=== PATIENT | male | born 1940 | race Caucasian/White ===

== ENCOUNTER 2021-08-24 10:09 | Outpatient (CLI) | payer MEDICARE | END 2021-08-24 10:10 | disposition home or self-care (01) | LOC: CTENTCT 10:09 | PROVIDERS: ATTEND Otolaryngology Plastic Surgery within the Head & Neck | DX: J32.9 Chronic sinusitis, unspecified (principal) | CPT/HCPCS: 70486 ==

== ENCOUNTER 2022-08-17 12:29 | Outpatient (CLI) | payer MEDICARE | END 2022-08-17 12:30 | disposition home or self-care (01) | LOC: RAD 12:29 | PROVIDERS: ATTEND Nurse Practitioner Family | DX: R05.1 Acute cough (principal) | CPT/HCPCS: 71046 ==

== ENCOUNTER 2022-08-17 14:24 | Inpatient (IN) | payer MEDICARE ==
[~2022-08-17 14:24] MED LIST: Iopamidol-370 76% 500 ML 1 ML ONE
[2022-08-17 15:00] LABS: #Eosinphils 0.2 thou/uL (0.0-0.7); #Lymphocytes 1.1 thou/uL (1.20-3.40); #Monocytes 0.7 thou/uL (0.11-0.59); %Basophils 0.8 % (0.0-1.0); %Lymphocytes 18.1 % (21.0-51.0); %Monocytes 11.7 % (0.0-10.0); %Neutrophils 65.5 % (42.0-75.0); Hemoglobin 16.3 g/dL (14.0-18.0); Mean Corpuscular HGB CONC 34.8 g/dL (32.0-36.0); Mean Corpuscular Hemoglobin 33.8 pg (27.0-31.0); Mean Platelet Volume 7.4 fL (7.4-10.4); Platelet Count 173 10x3/uL (130-400); RBC Distribution Width 11.9 % (11.5-14.5); Red Blood Cell (RBC) Count 4.81 mill/uL (4.70-6.10); White Blood Cell (WBC) Count 6.1 10x3/uL (4.8-10.8)
[2022-08-17 15:27] LABS: ALT (SGPT) 38 U/L (8-55); AST (SGOT) 33 U/L (5-34); Albumin 4.1 g/dL (3.4-4.8); Alkaline Phosphatase 112 U/L (40-110); Anion Gap 13 mmol/L (10-20); BUN (Urea Nitrogen) 14 mg/dL (8.4-25.7); Bilirubin, Total 0.7 mg/dL (0.2-1.2); Calc. Creatinine Clearance 0 mL/min (70-130); Calcium 9.6 mg/dL (7.8-10.44); Carbon Dioxide 25 mmol/L (23-31); Chloride 104 mmol/L (98-107); Estimated GFR 83; Globulin 2.9 g/dL (2.4-3.5); Glucose 144 mg/dL (83-110); Potassium 3.9 mmol/L (3.5-5.1); Sodium 138 mmol/L (136-145)
[2022-08-17] MEDS ORDERED: methylPREDNISolone Sod Succ/PF 125 MG/2 ML VIAL ONE (15:46)
[2022-08-17] MEDS ORDERED: Ipratropium/Albuterol 3 ML NEB ONE (15:57)
[2022-08-17 17:52] LABS: SARS-CoV-2 NAA Rapid Test Not Detected (NotDetected)
[2022-08-17] MEDS ORDERED: Ondansetron PF 4 MG/2 ML Vial IVP PRN (17:52)
[2022-08-17] MEDS ORDERED: Acetaminophen 325 MG TAB PO PRN (17:52)
[2022-08-17] MEDS ORDERED: Cepastat Lozenges 1 LOZ PO PRN (17:52)
[2022-08-17] MEDS ORDERED: Ondansetron ODT 4 MG TAB PO PRN (17:52)
[2022-08-17] MEDS ORDERED: cefTRIAXone\\ROCEPHIN 2 GM VIAL ONE (18:10)
[2022-08-17 19:43] LABS: Troponin I 0.014 ng/mL (< 0.028)
[2022-08-17] MEDS ORDERED: Azithromycin 500 MG in Sodium Chloride 0.9% 250 ML 250 ML IVPB SCH (20:00)
[2022-08-17 20:46] LABS: Bacteria/HPF None Seen HPF (None Seen); Bilirubin Negative (Negative); Blood, Urine Negative (Negative); CAUTI Indications for Culture Dysuria,urgency,freq; Clarity Clear (Clear); Glucose, Urine (Dipstick) Normal (Negative); Ketone, Urine Negative (Negative); Leukocyte Negative Leu/uL (Negative); Nitrite Negative (Negative); Protein, Urine (Dipstick) Negative (Neg-Trace); RBC/HPF 0-3 HPF (0-3); Specific Gravity, Urine 1.027 (1.002-1.036); Squamous Epithelial None Seen HPF (0-3); Urobilinogen Normal mg/dL (Less than 2); WBC/HPF 0-3 HPF (0-3)
[2022-08-17 20:48] LABS: Urine Culture Reflex No No
[2022-08-17 22:17] LABS: Troponin I 0.012 ng/mL (< 0.028)
[2022-08-17] MEDS: guaiFENesin/DM ER PO SCH (22:40)
[2022-08-17] MEDS: Sodium Chloride 0.9% 1,000 ML IV SCH (22:40)
[2022-08-17] MEDS: methylPREDNISolone Sod Succ 40 MG VIAL IVP SCH (22:40)
[2022-08-17 23:54] VITALS: BMI 31.6
[2022-08-18] MEDS ORDERED: Ipratropium/Albuterol 3 ML NEB NEB PRN (01:44)
[2022-08-18] MEDS ORDERED: Metoprolol Tartrate 5 MG/5 ML VIAL IVP SCH ×2 (02:00→03:30)
[2022-08-18] MEDS: methylPREDNISolone Sod Succ 40 MG VIAL IVP SCH ×4 (04:21→20:42)
[2022-08-18] MEDS: GUAIFENESIN SF SOLN 200 MG/10 ML UDCUP PO PRN (04:25)
[2022-08-18 05:24] LABS: #Lymphocytes 0.7 thou/uL (1.20-3.40); #Monocytes 0.1 thou/uL (0.11-0.59); #Neutrophils 4.4 thou/uL (1.40-6.50); %Eosinophils 0.1 % (0.0-10.0); %Lymphocytes 12.7 % (21.0-51.0); %Neutrophils 85.2 % (42.0-75.0); Hemoglobin 14.7 g/dL (14.0-18.0); Mean Corpuscular HGB CONC 33.9 g/dL (32.0-36.0); Mean Corpuscular Hemoglobin 33.3 pg (27.0-31.0); Mean Platelet Volume 7.4 fL (7.4-10.4); Platelet Count 175 10x3/uL (130-400); RBC Distribution Width 11.8 % (11.5-14.5); Red Blood Cell (RBC) Count 4.43 mill/uL (4.70-6.10); White Blood Cell (WBC) Count 5.2 10x3/uL (4.8-10.8)
[2022-08-18 05:44] LABS: Anion Gap 11 mmol/L (10-20); BUN (Urea Nitrogen) 12 mg/dL (8.4-25.7); Calc. Creatinine Clearance 113 mL/min (70-130); Calcium 8.7 mg/dL (7.8-10.44); Carbon Dioxide 22 mmol/L (23-31); Chloride 108 mmol/L (98-107); Estimated GFR 91; Glucose 154 mg/dL (83-110); Potassium 4.1 mmol/L (3.5-5.1); Sodium 137 mmol/L (136-145)
[2022-08-18] MEDS: guaiFENesin/DM ER PO SCH ×2 (08:55→20:39)
[2022-08-18] MEDS: Sodium Chloride 0.9% 1,000 ML IV SCH (08:55)
[2022-08-18] MEDS: Diltiazem 125 MG in Sodium Chloride 0.9% 100 ML IVPB SCH (15:09)
[2022-08-18] MEDS: Benzonatate 100 MG CAP PO PRN (20:39)
[2022-08-18] MEDS: Doxycycline 100 MG CAP PO SCH (20:39)
[2022-08-19] MEDS: GUAIFENESIN SF SOLN 200 MG/10 ML UDCUP PO PRN (03:42)
[2022-08-19] MEDS: methylPREDNISolone Sod Succ 40 MG VIAL IVP SCH ×4 (05:24→23:54)
[2022-08-19 05:49] LABS: #Lymphocytes 0.9 thou/uL (1.20-3.40); #Monocytes 0.4 thou/uL (0.11-0.59); #Neutrophils 14.6 thou/uL (1.40-6.50); %Eosinophils 0.1 % (0.0-10.0); %Lymphocytes 5.9 % (21.0-51.0); %Monocytes 2.3 % (0.0-10.0); %Neutrophils 91.7 % (42.0-75.0); Hemoglobin 14.7 g/dL (14.0-18.0); Mean Corpuscular HGB CONC 33.4 g/dL (32.0-36.0); Mean Corpuscular Hemoglobin 32.8 pg (27.0-31.0); Mean Corpuscular Volume 98.1 fl (78.0-98.0); Mean Platelet Volume 7.5 fL (7.4-10.4); Platelet Count 193 10x3/uL (130-400); Red Blood Cell (RBC) Count 4.47 mill/uL (4.70-6.10); White Blood Cell (WBC) Count 15.9 10x3/uL (4.8-10.8)
[2022-08-19 06:14] LABS: Anion Gap 10 mmol/L (10-20); BUN (Urea Nitrogen) 20 mg/dL (8.4-25.7); Calc. Creatinine Clearance 107 mL/min (70-130); Calcium 9.1 mg/dL (7.8-10.44); Carbon Dioxide 23 mmol/L (23-31); Chloride 107 mmol/L (98-107); Estimated GFR 89; Glucose 151 mg/dL (83-110); Potassium 4.2 mmol/L (3.5-5.1); Sodium 136 mmol/L (136-145)
[2022-08-19] MEDS: guaiFENesin/DM ER PO SCH ×2 (09:03→20:57)
[2022-08-19] MEDS: Levothyroxine Sodium 50 MCG TAB PO SCH (09:03)
[2022-08-19] MEDS: Escitalopram Oxalate 10 mg Tablet PO SCH (09:04)
[2022-08-19] MEDS: Doxycycline 100 MG CAP PO SCH ×2 (09:04→20:57)
[2022-08-19] MEDS: Diltiazem 125 MG in Sodium Chloride 0.9% 100 ML IVPB SCH (15:56)
[2022-08-20 05:09] LABS: #Lymphocytes 0.8 thou/uL (1.20-3.40); #Monocytes 0.3 thou/uL (0.11-0.59); #Neutrophils 12.2 thou/uL (1.40-6.50); %Basophils 0.1 % (0.0-1.0); %Lymphocytes 6.2 % (21.0-51.0); %Monocytes 1.9 % (0.0-10.0); %Neutrophils 91.8 % (42.0-75.0); Hemoglobin 14.4 g/dL (14.0-18.0); Mean Corpuscular HGB CONC 33.5 g/dL (32.0-36.0); Mean Corpuscular Hemoglobin 32.6 pg (27.0-31.0); Mean Corpuscular Volume 97.3 fl (78.0-98.0); Mean Platelet Volume 7.6 fL (7.4-10.4); Platelet Count 193 10x3/uL (130-400); RBC Distribution Width 11.9 % (11.5-14.5); Red Blood Cell (RBC) Count 4.43 mill/uL (4.70-6.10); White Blood Cell (WBC) Count 13.3 10x3/uL (4.8-10.8)
[2022-08-20 05:36] LABS: Anion Gap 11 mmol/L (10-20); BUN (Urea Nitrogen) 18 mg/dL (8.4-25.7); Calc. Creatinine Clearance 115 mL/min (70-130); Calcium 8.9 mg/dL (7.8-10.44); Carbon Dioxide 22 mmol/L (23-31); Chloride 106 mmol/L (98-107); Estimated GFR 91; Glucose 145 mg/dL (83-110); Potassium 4.1 mmol/L (3.5-5.1); Sodium 135 mmol/L (136-145)
[2022-08-20] MEDS: methylPREDNISolone Sod Succ 40 MG VIAL IVP SCH ×4 (06:10→23:55)
[2022-08-20] MEDS: guaiFENesin/DM ER PO SCH ×2 (09:44→20:33)
[2022-08-20] MEDS: Escitalopram Oxalate 10 mg Tablet PO SCH (09:44)
[2022-08-20] MEDS: Doxycycline 100 MG CAP PO SCH ×2 (09:44→20:34)
[2022-08-20] MEDS: Levothyroxine Sodium 50 MCG TAB PO SCH (09:47)
[2022-08-20] MEDS ORDERED: PROPOFOL 200 MG/20 ML VIAL ONE (12:22)
[2022-08-20] MEDS ORDERED: Lidocaine 1% PF 5 ML VIAL ONE (12:22)
[2022-08-20] MEDS: Benzonatate 100 MG CAP PO PRN (20:33)
[2022-08-20] MEDS: Diltiazem HCl SR 60 mg Capsule PO SCH (20:35)
[2022-08-20] MEDS: GUAIFENESIN SF SOLN 200 MG/10 ML UDCUP PO PRN (23:55)
[2022-08-21 02:33] LABS: #Lymphocytes 0.8 thou/uL (1.20-3.40); #Monocytes 0.3 thou/uL (0.11-0.59); #Neutrophils 7.8 thou/uL (1.40-6.50); %Basophils 0.1 % (0.0-1.0); %Eosinophils 0.1 % (0.0-10.0); %Monocytes 2.8 % (0.0-10.0); Hemoglobin 13.4 g/dL (14.0-18.0); Mean Corpuscular HGB CONC 34.7 g/dL (32.0-36.0); Mean Corpuscular Hemoglobin 34.1 pg (27.0-31.0); Mean Corpuscular Volume 98.3 fl (78.0-98.0); Mean Platelet Volume 7.5 fL (7.4-10.4); Platelet Count 188 10x3/uL (130-400); RBC Distribution Width 11.9 % (11.5-14.5); Red Blood Cell (RBC) Count 3.93 mill/uL (4.70-6.10); White Blood Cell (WBC) Count 8.9 10x3/uL (4.8-10.8)
[2022-08-21 02:53] LABS: Magnesium 2.1 mg/dL (1.6-2.6)
[2022-08-21 03:05] LABS: Anion Gap 11 mmol/L (10-20); BUN (Urea Nitrogen) 26 mg/dL (8.4-25.7); Calc. Creatinine Clearance 96 mL/min (70-130); Calcium 9.3 mg/dL (7.8-10.44); Carbon Dioxide 26 mmol/L (23-31); Chloride 104 mmol/L (98-107); Estimated GFR 86; Glucose 162 mg/dL (83-110); Potassium 4.2 mmol/L (3.5-5.1); Sodium 137 mmol/L (136-145)
[2022-08-21] MEDS: Levothyroxine Sodium 50 MCG TAB PO SCH (06:09)
[2022-08-21] MEDS: methylPREDNISolone Sod Succ 40 MG VIAL IVP SCH ×3 (06:09→17:37)
[2022-08-21] MEDS: Doxycycline 100 MG CAP PO SCH ×2 (08:50→20:38)
[2022-08-21] MEDS: Escitalopram Oxalate 10 mg Tablet PO SCH (08:50)
[2022-08-21] MEDS: guaiFENesin/DM ER PO SCH ×2 (08:50→20:39)
[2022-08-21] MEDS: Diltiazem HCl SR 60 mg Capsule PO SCH (08:52)
[2022-08-22] MEDS: methylPREDNISolone Sod Succ 40 MG VIAL IVP SCH ×4 (00:07→16:37)
[2022-08-22 05:40] LABS: Anion Gap 9 mmol/L (10-20); BUN (Urea Nitrogen) 22 mg/dL (8.4-25.7); Calc. Creatinine Clearance 106 mL/min (70-130); Calcium 9.1 mg/dL (7.8-10.44); Carbon Dioxide 26 mmol/L (23-31); Chloride 103 mmol/L (98-107); Estimated GFR 89; Glucose 144 mg/dL (83-110); Potassium 4.1 mmol/L (3.5-5.1); Sodium 134 mmol/L (136-145)
[2022-08-22] MEDS ORDERED: Clindamycin/D5W 900 MG in Premix Bag 1 BAG IVPB SCH (05:45)
[2022-08-22] MEDS: Levothyroxine Sodium 50 MCG TAB PO SCH (06:14)
[2022-08-22] MEDS: Doxycycline 100 MG CAP PO SCH ×2 (07:54→21:24)
[2022-08-22] MEDS: guaiFENesin/DM ER PO SCH ×2 (07:55→21:24)
[2022-08-22] MEDS: Escitalopram Oxalate 10 mg Tablet PO SCH (07:55)
[2022-08-22] MEDS ORDERED: Levofloxacin 500 mg/D5W 100 ml Premix Bag ONE (08:00)
[2022-08-22] MEDS ORDERED: Lidocaine 1% (PF) 30 ML VIAL ONE ×2 (08:04→08:51)
[2022-08-22] MEDS ORDERED: Vancomycin HCl 500 MG VIAL ONE (08:04)
[2022-08-22] MEDS ORDERED: Clindamycin/D5W 600 mg/50 ml Premix Bag ONE (08:04)
[2022-08-22] MEDS ORDERED: Gentamicin 80 MG/2 ML VIAL ONE (08:31)
[2022-08-22] MEDS ORDERED: Ipratropium/Albuterol 3 ML NEB NEB SCH (15:15)
[2022-08-23] MEDS: Levothyroxine Sodium 50 MCG TAB PO SCH (06:21)
[2022-08-23] MEDS: Doxycycline 100 MG CAP PO SCH (09:06)
[2022-08-23] MEDS: guaiFENesin/DM ER PO SCH (09:07)
[2022-08-23] MEDS: Escitalopram Oxalate 10 mg Tablet PO SCH (09:07)
[2022-08-23 13:00] VITALS: BP 166/73; TEMP 97.4
== END 2022-08-23 15:11 | disposition home or self-care (01) | DRG 243 ==
LOC: ERS 14:24 → 2SW 17:40 → OBSVTOIN 08-20 08:59
PROVIDERS: ADMIT Family Medicine; ATTEND Internal Medicine
PROC: 0JH606Z Insertion of Pacemaker, Dual Chamber into Chest Subcutaneous Tissue and Fascia, Open Approach (ICD-10-PCS; principal; 2022-08-22)
PROC: 02H63JZ Insertion of Pacemaker Lead into Right Atrium, Percutaneous Approach (ICD-10-PCS; 2022-08-22)
PROC: 02HK3JZ Insertion of Pacemaker Lead into Right Ventricle, Percutaneous Approach (ICD-10-PCS; 2022-08-22)
PROC: 5A2204Z Restoration of Cardiac Rhythm, Single (ICD-10-PCS; 2022-08-22)
PROC: B246ZZ4 Ultrasonography of Right and Left Heart, Transesophageal (ICD-10-PCS; 2022-08-22)
DX: I48.92 Unspecified atrial flutter (principal); E87.1 Hypo-osmolality and hyponatremia; I49.5 Sick sinus syndrome; E03.9 Hypothyroidism, unspecified; Z20.822 Contact with and (suspected) exposure to COVID-19; I10 Essential (primary) hypertension; H35.30 Unspecified macular degeneration; I08.1 Rheumatic disorders of both mitral and tricuspid valves; J98.01 Acute bronchospasm; K21.9 Gastro-esophageal reflux disease without esophagitis; I08.3 Combined rheumatic disorders of mitral, aortic and tricuspid valves; Z88.0 Allergy status to penicillin; Z79.899 Other long term (current) drug therapy; Z98.52 Vasectomy status; Z90.49 Acquired absence of other specified parts of digestive tract; Z88.1 Allergy status to other antibiotic agents
CPT/HCPCS: 33208; 36415; 71045; 71046; 71275; 80048; 80053; 81001; 83735; 83880; 84443; 84484; 85025; 87040; 87070; 87205; 87798; 89220; 93005; 93010; 93306; 93312; 93798; 94640; 94760; 96365; 96366; 96367; 96372; 96375; 96376; G0378; J0456; J0696; J1580; J1650; J1956; J2001; J2704; J2920; J2930; J3370; J3490; J7050; J7620; Q9967

== ENCOUNTER 2022-09-10 09:25 | Emergency (ER) | payer MEDICARE ==
[2022-09-10 10:15] LABS: #Basophils 0.1 thou/uL (0.0-0.2); #Eosinphils 0.1 thou/uL (0.0-0.7); #Lymphocytes 0.8 thou/uL (1.20-3.40); #Monocytes 0.7 thou/uL (0.11-0.59); #Neutrophils 7.3 thou/uL (1.40-6.50); %Basophils 1.4 % (0.0-1.0); %Eosinophils 1.4 % (0.0-10.0); %Lymphocytes 8.5 % (21.0-51.0); %Monocytes 7.2 % (0.0-10.0); %Neutrophils 81.5 % (42.0-75.0); Hemoglobin 14.8 g/dL (14.0-18.0); Mean Corpuscular HGB CONC 33.1 g/dL (32.0-36.0); Mean Corpuscular Hemoglobin 32.7 pg (27.0-31.0); Mean Platelet Volume 6.8 fL (7.4-10.4); Platelet Count 197 10x3/uL (130-400); RBC Distribution Width 12.8 % (11.5-14.5); Red Blood Cell (RBC) Count 4.51 mill/uL (4.70-6.10); White Blood Cell (WBC) Count 8.9 10x3/uL (4.8-10.8)
[2022-09-10 10:47] LABS: ALT (SGPT) 44 U/L (8-55); AST (SGOT) 29 U/L (5-34); Albumin 3.8 g/dL (3.4-4.8); Alkaline Phosphatase 114 U/L (40-110); Anion Gap 14 mmol/L (10-20); BUN (Urea Nitrogen) 14 mg/dL (8.4-25.7); Bilirubin, Total 1.3 mg/dL (0.2-1.2); Calc. Creatinine Clearance 0 mL/min (70-130); Calcium 8.9 mg/dL (7.8-10.44); Carbon Dioxide 24 mmol/L (23-31); Chloride 96 mmol/L (98-107); Estimated GFR 90; Globulin 2.8 g/dL (2.4-3.5); Glucose 107 mg/dL (83-110); Lipase 35 U/L (8-78); Potassium 3.6 mmol/L (3.5-5.1); Protein, Total 6.6 g/dL (5.8-8.1); Sodium 130 mmol/L (136-145)
[2022-09-10] MEDS ORDERED: Iopamidol-370 76% 500 ML 1 ML ONE (11:04)
[2022-09-10] MEDS ORDERED: LORazepam 2 MG/ML SYR.(CARPUJECT) ONE (11:09)
[2022-09-10 13:24] LABS: Bilirubin Negative (Negative); Blood, Urine Negative (Negative); Clarity Clear (Clear); Glucose, Urine (Dipstick) Normal (Negative); Ketone, Urine Negative (Negative); Leukocyte Negative Leu/uL (Negative); Nitrite Negative (Negative); Protein, Urine (Dipstick) Negative (Neg-Trace); Specific Gravity, Urine 1.048 (1.002-1.036); Urobilinogen Normal mg/dL (Less than 2)
== END 2022-09-10 13:45 | disposition home or self-care (01) ==
LOC: ERS 09:25
DX: K59.00 Constipation, unspecified (principal); E03.9 Hypothyroidism, unspecified; K21.9 Gastro-esophageal reflux disease without esophagitis; Z79.01 Long term (current) use of anticoagulants
CPT/HCPCS: 74177; 80053; 81003; 83690; 85025; 96374; 99284; J2060; 36415

== ENCOUNTER 2023-07-24 10:08 | Outpatient (CLI) | payer MEDICARE | END 2023-07-24 10:09 | LOC: RAD 10:08 | PROVIDERS: ATTEND Internal Medicine Critical Care Medicine | DX: R06.00 Dyspnea, unspecified (principal) | CPT/HCPCS: 71046 ==

== ENCOUNTER 2024-07-09 15:06 | Outpatient (CLI) | payer MEDICARE | END 2024-07-09 15:07 | disposition home or self-care (01) | LOC: RAD 15:06 | PROVIDERS: ATTEND Internal Medicine Critical Care Medicine | DX: R06.00 Dyspnea, unspecified (principal) | CPT/HCPCS: 71046 ==